=== PATIENT | female | born 1995 | race American Indian/Alaskan Native ===

== ENCOUNTER 2018-09-16 23:09 | Inpatient (IN) | payer MEDICAID ==
--- NOTE | 2018-09-16 23:18 | History and Physical Report ---
History of Present Illness Date of examination: 09/16/18 Date of admission: 09/16/18 23:09 Chief complaint: Labor History of present illness: Pt is a 23yo BF EDC 09/14/18; EGA 40 2/7 weeks presents to L&D complaining of RUC's q 3-4 mins and ready to deliver. She received care at [place], but records are not available and GBS is unknown. Past History Past Medical History: no pertinent history Past Surgical History: no surgical history Social history: no significant social history, single - Obstetrical History Expected Date of Delivery: 09/14/18 Actual Gestation: 40 Week(s) 3 Day(s) Medications and Allergies Allergies Allergy/AdvReac Type Severity Reaction Status Date / Time No Known Allergies Allergy Unverified 03/17/14 22:32 Home Medications Medication Instructions Recorded Confirmed Last Taken Type Pnv95/Ferrous Fumarate/FA 1 each PO QDAY #90 tablet 03/18/14 09/17/18 Unknown Rx [ Vitamins] Promethazine [Phenergan] 25 mg PO Q6H PRN #14 tablet 03/18/14 09/17/18 Unknown Rx Review of Systems All systems: negative - Vital Signs Vital signs: Vital Signs Temp Pulse Resp BP 96.9 F L 60 18 149/77 09/16/18 23:12 09/16/18 23:12 09/16/18 23:12 09/16/18 23:12 Temp Pulse Resp BP Pulse Ox 96.9 F L 60 18 149/77 09/16/18 23:12 09/16/18 23:12 09/16/18 23:12 09/16/18 23:12 - Physical Exam Breasts: Positive: deferred Abdomen: Positive: normal appearance Genitourinary (Female): Positive: normal external genitalia Vagina: Positive: normal moisture Extremities: Positive: normal - Obstetrical FHR: category 1 Uterine Contraction Monitor Mode: External Cervical Dilatation: 10 Cervical Effacement Percentage: 100 Uterine Contraction Pattern: Regular Uterine Contraction Intensity: Moderate Results Result Diagrams: 09/17/18 10:52 All other labs normal. Assessment and Plan - Patient Problems (1) 40 weeks gestation of Onset Date: 09/16/18 Current Visit: Yes Status: Resolved Plan to address problem: A: IUP @ 40 2/7 weeks in labor Unknown GBS P: Admit to L&D for expectant vaginal delivery Obtain records
[2018-09-16] MEDS ORDERED: STADOL IV PRN (23:19)
[2018-09-16] MEDS ORDERED: BRETHINE SUB-Q PRN (23:19)
[2018-09-16] MEDS ORDERED: MINERAL OIL PO PRN (23:19)
[2018-09-16] MEDS ORDERED: BRETHINE IVP PRN (23:19)
[2018-09-16] MEDS ORDERED: XYLOCAINE 2% INFILTRATI ONE (23:19)
--- NOTE | 2018-09-16 23:19 | Procedure Note ---
OB Delivery Note - Delivery Date of Delivery: 09/16/18 Surgeon: DODIE GLASS Estimated blood loss: 200cc - Vaginal Delivery presentation: vertex Delivery position: OA Intrapartum events: none Delivery induction: none Delivery augmentation: rupture of membranes Delivery monitor: external FHT, external uterine Route of delivery: Delivery placenta: spontaneous Delivery cord: 3 umbilical vessels Episiotomy: none Delivery laceration: none Anesthesia: none Delivery comments: Infant delivered OA and handed to awaiting Peds/RT - Infant A at 1 minute: 8 at 5 minutes: 9 Infant Gender: Female (2688gms)
[2018-09-16] MEDS ORDERED: BENADRYL PO PRN (23:23)
[2018-09-16] MEDS ORDERED: ZOFRAN IV PRN (23:23)
[2018-09-16] MEDS ORDERED: PHENERGAN PR PRN (23:23)
[2018-09-16] MEDS ORDERED: TYLENOL PO PRN (23:23)
[2018-09-16] MEDS ORDERED: TUCKS PAD TP PRN (23:23)
[2018-09-16] MEDS ORDERED: DULCOLAX PR PRN (23:23)
[2018-09-16] MEDS ORDERED: PHENERGAN PO PRN (23:23)
[2018-09-16] MEDS ORDERED: LANSINOH TP PRN (23:23)
[2018-09-16] MEDS ORDERED: MILK OF MAGNESIA PO PRN (23:23)
[2018-09-16] MEDS ORDERED: PITOCin/NS 20 UNIT/1000ML DRIP 20 UNITS/1,000 ML BAG IV SCH ×2 (23:45)
[2018-09-16] MEDS ORDERED: SODIUM CHLORIDE FLUSH SYRINGE 10 ML IV NR (23:45)
[2018-09-16] MEDS ORDERED: PITOCin/NS 30 UNIT/500ML 30 UNITS/500 ML BAG IV SCH (23:45)
[2018-09-16] MEDS ORDERED: LACTATED RINGERS 1,000 ML IV SCH (23:45)
[2018-09-17 00:41] LABS: Hematocrit 35.7 % (30.3-42.9); Hemoglobin 11.5 gm/dl (10.1-14.3); Mean Corpuscular HGB Conc 32 % (30-34); Mean Corpuscular Volume 90 fl (79-97); Platelet Count 277 K/mm3 (140-440); Red Blood Count 3.98 M/mm3 (3.65-5.03); Red Cell Distribution Width 14.4 % (13.2-15.2)
[2018-09-17] MEDS: IBUPROFEN PO SCH ×4 (01:00→17:43)
[2018-09-17] MEDS ORDERED: M-M-R II VACCINE SUB-Q ONE (06:00)
[2018-09-17] MEDS ORDERED: BOOSTRIX IM ONE (06:00)
[2018-09-17] MEDS ORDERED: PRENATAL VITAMIN PO SCH (10:00)
--- NOTE | 2018-09-17 10:33 | Progress Note ---
Assessment and Plan - Patient Problems (1) 40 weeks gestation of Onset Date: 09/16/18 Current Visit: Yes Status: Resolved (2) (normal spontaneous vaginal delivery) Onset Date: 09/17/18 Current Visit: Yes Status: Resolved Plan to address problem: A: S/P - PPD #1 Doing well Asymptomatic anemia - stable P: May go home tomorrow. Subjective - Subjective Date of service: 09/17/18 Principal diagnosis: s/p - PPD #1 Interval history: Pt is feeling well without complaints. Bleeding improved. Patient reports: appetite normal, voiding normally, pain well controlled, flatus, ambulating normally, no dizzy ambulation, no nauseated [place]: doing well, nursing well, bottle feeding Objective - Vital Signs Latest vital signs: Vital Signs Temp Pulse Resp BP BP Pulse Ox 09/17/18 07:16 97.6 F 80 18 112/69 09/17/18 06:00 18 09/17/18 04:50 98.3 F 09/17/18 04:49 76 119/66 99 09/17/18 01:25 98.9 F 67 20 128/69 100 09/17/18 01:00 18 09/17/18 00:33 65 142/66 09/17/18 00:32 65 18 142/66 09/17/18 00:05 53 L 117/69 09/16/18 23:40 18 09/16/18 23:35 71 126/64 09/16/18 23:12 96.9 F L 60 18 149/77 09/16/18 23:10 18 Intake and Output 09/16/18 09/17/18 09/17/18 22:59 06:59 14:59 Intake Total 240 360 Balance 240 360 Intake: Oral 360 Intake, Free Water 240 Other: Total, Intake Amount 360 # Voids Void 1 # Bowel Movements 1 Weight 88.451 kg Estimated Blood Loss 200 - Exam Abdomen: Present: normal appearance, soft Uterus: Present: normal, firm, fundal height below umbilicus Extremities: Present: normal - Labs Labs: Laboratory Tests 09/16/18 09/17/18 09/17/18 00:09 00:09 00:09 WBC 10.3 RBC 3.98 Hgb 11.5 Hct 35.7 MCV 90 MCH 29 MCHC 32 RDW 14.4 Plt Count 277 Urine Opiates Screen Urine Methadone Screen Ur Barbiturates Screen Ur Phencyclidine Scrn Ur Amphetamines Screen U Benzodiazepines Scrn Urine Cocaine Screen U Marijuana (THC) Screen Drugs of Abuse Note Hep Bs Antigen HIV 1&2 Antibody Rapid HIV P24 Antigen Rubella IgG Antibody Immune Blood Type A POSITIVE Antibody Screen Negative 09/17/18 09/17/18 09/17/18 00:09 00:09 10:52 WBC RBC Hgb 11.9 Hct 36.0 MCV MCH MCHC RDW Plt Count Urine Opiates Screen Urine Methadone Screen Ur Barbiturates Screen Ur Phencyclidine Scrn Ur Amphetamines Screen U Benzodiazepines Scrn Urine Cocaine Screen U Marijuana (THC) Screen Drugs of Abuse Note Hep Bs Antigen Non-reactive HIV 1&2 Antibody Rapid Non react HIV P24 Antigen Non react Rubella IgG Antibody Blood Type Antibody Screen 09/17/18 12:00 WBC RBC Hgb Hct MCV MCH MCHC RDW Plt Count Urine Opiates Screen Presumptive negative Urine Methadone Screen Presumptive negative Ur Barbiturates Screen Presumptive negative Ur Phencyclidine Scrn Presumptive negative Ur Amphetamines Screen Presumptive negative U Benzodiazepines Scrn Presumptive negative Urine Cocaine Screen Presumptive negative U Marijuana (THC) Screen Presumptive negative Drugs of Abuse Note Disclamer Hep Bs Antigen HIV 1&2 Antibody Rapid HIV P24 Antigen Rubella IgG Antibody Blood Type Antibody Screen
[2018-09-17 10:59] LABS: Hemoglobin 11.9 gm/dl (10.1-14.3)
[2018-09-17] MEDS: FEOSOL PO SCH ×2 (11:10→22:35)
[2018-09-17] MEDS: COLACE PO SCH ×2 (11:10→22:35)
[2018-09-17] MEDS: NORCO 5/325 PO PRN ×2 (12:02→17:44)
[2018-09-17 12:38] LABS: Amphetamine Screen,Urine PRESUMPTIVE NEGATIVE; Benzodiazepines Screen,Urine PRESUMPTIVE NEGATIVE; Cannabinoid Screen,Urine PRESUMPTIVE NEGATIVE; Cocaine Screen,Urine PRESUMPTIVE NEGATIVE; Methadone Screen,Urine PRESUMPTIVE NEGATIVE; Opiate Screen,Urine PRESUMPTIVE NEGATIVE
--- NOTE | 2018-09-17 13:28 | Discharge Summary ---
Providers - Providers Date of Admission: 09/16/18 23:09 Date of discharge: 09/18/18 Attending physician: DODIE GLASS 09/17/18 01:59 Consult to Case Management [CONS] Routine Services Needed at Discharge: Central Supply Aide Notified:: no Additional Physician Instructions: Primary care physician: DODIE GLASS Hospitalization Reason for admission: active labor, rupture of membranes, IUP at term Delivery: Episiotomy: none Laceration: none Other procedures: none complications: none Discharge diagnosis: IUP at term delivered [place] baby: female Hospital course: Unremarkable. Condition at discharge: Good Disposition: DC-01 TO HOME OR SELFCARE - Discharge Diagnoses (1) 40 weeks gestation of Status: Resolved Plan - Discharge Medications Prescriptions: Ferrous Sulfate [Feosol 325 MG tab] 325 mg PO BID #60 tablet Ibuprofen [Motrin 600 MG tab] 600 mg PO Q6H #30 tablet Vit-Fe Fumar-FA [ Vitamin] 1 each PO QDAY #30 tablet - Provider Discharge Summary Activity: routine, no sex for 6 weeks, no heavy lifting 4 weeks, no strenuous exercise Diet: routine Instructions: routine Additional instructions: [] Smoking cessation referral if applicable(refer to patient education folder for contact #) [] Refer to [facility] Booklet Call your doctor immediately for: * Fever > 100.5 * Heavy vaginal bleeding ( >1 pad per hour) * Severe persistent headache * Shortness of breath * Reddened, hot, painful area to leg or breast * Drainage or odor from incision. * Keep incision clean and dry at all times and follow doctor's instructions regarding bathing/showering - Follow up plan Follow up: DODIE GLASS MD [Primary Care Provider] - 6 Weeks
[2018-09-18] MEDS: IBUPROFEN PO SCH ×2 (00:30→05:59)
[2018-09-18 08:57] VITALS: BP 116/57
== END 2018-09-18 16:31 | disposition home or self-care (01) | DRG 775 ==
LOC: LD 23:09 → OB 09-17 01:04
PROVIDERS: ADMIT Obstetrics & Gynecology; ATTEND Obstetrics & Gynecology
PROC: 10E0XZZ Delivery of Products of Conception, External Approach (ICD-10-PCS; principal; 2018-09-16)
DX: O90.81 Anemia of the puerperium (principal); D64.9 Anemia, unspecified; Z3A.40 40 weeks gestation of pregnancy; Z37.0 Single live birth
CPT/HCPCS: 36415; 80307; 85014; 85018; 85027; 86592; 86706; 86762; 86850; 86900; 86901; 87806; G0378; J0595; J2590